=== PATIENT | male | born 1980 | race Caucasian/White ===

== ENCOUNTER 2016-06-17 21:27 | Emergency (ER) | payer OTHER ==
[~2016-06-17] VITALS: Ht 177.8 cm; Wt 113.4 kg
[~2016-06-17 21:27] MED LIST: UNK ABX; VICODIN 5/500 M1 TAB
[2016-06-17 21:30] VITALS: BP 213/132
[2016-06-17] MEDS ORDERED: NAPROSYN500 MG PO (21:40)
--- NOTE | 2016-06-17 22:36 | NUR ---
PT AMBULATED TO BED 5 AT THIS TIME.
[2016-06-17] MEDS ORDERED: NACL 0.9% 1,000 ML IV SCH (22:49)
[2016-06-17] MEDS ORDERED: HYDROmorphone 1 MG/ML AMP IVP ONE (22:50)
[2016-06-17] MEDS ORDERED: ONDANSETRON 4 MG/2 ML VIAL IVP ONE (22:50)
--- NOTE | 2016-06-17 23:56 | NUR ---
PATIENT PRESENTS TO ED WITH LUMBAR PAIN S/P FALL . PT STATES NO LOC AT TIME OF FALL AND THAT THE PAIN IS ONLY RELIEVED BY LYING SUPINE . DENIES N/V/D; SKIN IS PINK/WARM/DRY; AAOX4 WITH EVEN AND STEADY GAIT; LUNGS CLEAR BL; HR EVEN AND REGULAR; PT DENIES ANY FEVER, CP, SOB, OR COUGH AT THIS TIME; PATIENT STATES PAIN OF 8/10 AT THIS TIME; VSS; PATIENT POSITIONED FOR COMFORT; HOB ELEVATED; BEDRAILS UP X2; BED DOWN. ER MD MADE AWARE OF PT STATUS.
--- NOTE | 2016-06-18 01:57 | NUR ---
Patient appears to be resting comfortably in bed. Vital Signs within normal limits. Respirations even and unlabored.
[2016-06-18] MEDS ORDERED: HYDROmorphone 1 MG/ML AMP IVP ONE (02:30)
[2016-06-18 03:15] VITALS: BP 125/81
--- NOTE | 2016-06-18 03:15 | NUR ---
IV removed, catheter intact and site benign. Applied folded 4x4 gauze and tape to stop bleeding.
--- NOTE | 2016-06-18 03:15 | NUR ---
Patient discharged with v/s stable. Written and verbal after care instructions given and explained. Patient alert, oriented and verbalized understanding of instructions. Ambulatory with steady gait. All questions addressed prior to discharge. ID band removed. Patient advised to follow up with PMD. Rx of FLEXERIL AND NORCO given. Patient educated on indication of medication including possible reaction and side effects. Opportunity to ask questions provided and answered.
== END 2016-06-18 03:15 | disposition home or self-care (01) ==
LOC: MED 21:27
DX: S33.5XXA Sprain of ligaments of lumbar spine, initial encounter (principal); M19.90 Unspecified osteoarthritis, unspecified site; W01.0XXA Fall on same level from slipping, tripping and stumbling without subsequent striking against object, initial encounter; Y93.89 Activity, other specified; Y92.89 Other specified places as the place of occurrence of the external cause; Y99.8 Other external cause status
CPT/HCPCS: 36415; 72131; 80053; 81001; 85025; 96361; 96374; 96375; 96376; 99285; J1170; J2405; J7030

== ENCOUNTER 2016-10-26 15:04 | Emergency (ER) | payer OTHER ==
[~2016-10-26] VITALS: Ht 175.3 cm; Wt 104.3 kg
[~2016-10-26 15:04] MED LIST changes: +NAPR500T1 PO; -UNK ABX; -VICODIN 5/500 M1 TAB
--- NOTE | 2016-10-26 15:04 | NUR ---
Patient was BIB [place] [facility] and taken to [facility].
[2016-10-26 15:07] VITALS: BP 159/94
--- NOTE | 2016-10-26 15:19 | NUR ---
Patient to bed 03.
--- NOTE | 2016-10-26 15:20 | NUR ---
PATIENT PRESENTS TO ED WITH PATIENT VERY RESTLESS AND TALKATIVE. FATHER CALLED [phone] SEC. TO DRUG USE. HX: DRUG USE. NO MEDS. PER PATIENT DENIES N/V/D; SKIN IS PINK/WARM/DRY; AAOX4 WITH EVEN AND STEADY GAIT; LUNGS CLEAR BL; HR EVEN AND REGULAR; PT DENIES ANY FEVER, CP, SOB, OR COUGH AT THIS TIME; PATIENT STATES PAIN OF 0/10 AT THIS TIME; VSS; PATIENT POSITIONED FOR COMFORT; HOB ELEVATED; BEDRAILS UP X2; BED DOWN. ER MD MADE AWARE OF PT STATUS.
--- NOTE | 2016-10-26 15:35 | NUR ---
Dr. Galeano evaluating patient.
[2016-10-26 15:52] VITALS: BP 159/94
--- NOTE | 2016-10-26 15:52 | NUR ---
Patient discharged with v/s stable. Written and verbal after care instructions given and explained. Patient verbalized understanding. Ambulatory with in custody. All questions addressed prior to discharge. Advised to follow up with PMD.
== END 2016-10-26 15:52 ==
LOC: MED 15:04
DX: S61.214A Laceration without foreign body of right ring finger without damage to nail, initial encounter (principal); S09.90XA Unspecified injury of head, initial encounter; F15.20 Other stimulant dependence, uncomplicated; F10.10 Alcohol abuse, uncomplicated; X58.XXXA Exposure to other specified factors, initial encounter; Y93.89 Activity, other specified; Y92.89 Other specified places as the place of occurrence of the external cause; Y99.8 Other external cause status
CPT/HCPCS: 12001; 99283

== ENCOUNTER 2021-11-20 21:40 | Emergency (ER) | payer OTHER ==
[~2021-11-20] VITALS: Ht 175.3 cm; Wt 124.7 kg
[2021-11-20 22:16] VITALS: BP 170/105
--- NOTE | 2021-11-20 22:20 | NUR ---
Patient waited inside a car.
--- NOTE | 2021-11-21 02:17 | NUR ---
Dr. Lazo examining patient.
[2021-11-21 02:48] VITALS: BP 152/92
--- NOTE | 2021-11-21 02:48 | NUR ---
Patient discharged with v/s stable. Written and verbal after care instructions given and explained. Patient verbalized understanding. Ambulatory with steady gait. All questions addressed prior to discharge. Advised to follow up with PMD.
== END 2021-11-21 02:48 | disposition home or self-care (01) ==
LOC: MED 21:40
DX: S02.2XXA Fracture of nasal bones, initial encounter for closed fracture (principal); S00.12XA Contusion of left eyelid and periocular area, initial encounter; M54.9 Dorsalgia, unspecified; G89.29 Other chronic pain; Y08.89XA Assault by other specified means, initial encounter; Y93.89 Activity, other specified; Y92.89 Other specified places as the place of occurrence of the external cause; Y99.8 Other external cause status
CPT/HCPCS: 99282

== ENCOUNTER 2023-06-04 09:03 | Emergency (ER) | payer OTHER ==
[~2023-06-04] VITALS: Ht 172.7 cm; Wt 90.7 kg
[2023-06-04 09:21] VITALS: BP 153/105; PULSE 91; RESP 20; TEMP 98; O2SAT 98
== END 2023-06-04 09:37 | disposition left against medical advice (07) ==
LOC: MED 09:03
DX: R05.9 Cough, unspecified (principal); J00 Acute nasopharyngitis [common cold]; Z53.21 Procedure and treatment not carried out due to patient leaving prior to being seen by health care provider
CPT/HCPCS: 99281